=== PATIENT | male | born 1945 | race Caucasian/White ===

== ENCOUNTER 2016-06-05 17:09 | Emergency (ER) | payer OTHER ==
[~2016-06-05] VITALS: Ht 182.9 cm; Wt 101.8 kg
[~2016-06-05 17:09] MED LIST: ADVAIR HFA120 INHAL1 IH; ALBUTEROL SULF8.5 GM IH; AMBIEN10 MG PO; AMLODIPINE BESY10 MG PO; AMLODIPINE BESYL5 MG PO; ASPIR 8181 M1 PO; ASPIR-LOW81 MG PO; CALCITRIOL0.25 MCG PO; CARTIA XT180 MG PO; CARVEDILOL3.125 MG PO; CEFDINIR300 MG PO; CENTRUM SILVER1 EAC3 PO; CEPHALEXIN500 MG PO; COMBIVENT200 INHALA IH; COUMADIN10 MG PO; COUMADIN7.5 MG PO; COZAAR100 MG PO; COZAAR50 MG PO; DIOVAN40 MG PO; DOXYCYCLINE HY100 MG PO; DULERA 100 MCG/13 GM IH; DURAGESIC75 MCG TD; FUROSEMIDE40 MG PO; HUMALOG100 UNIT/1 SC; HUMALOG100 UNIT/2 SC; IMDUR30 MG PO; IMDUR60 MG PO; ISOSORBIDE MONO30 MG PO; ISOSORBIDE PO; JANUVIA25 MG PO; K-DUR20 MEQ PO; KEFLEX500 MG PO; KLOR-CON M2020 MEQ PO; LANTUS 10100 UNITS/ SC; LASIX20 MG PO; LASIX40 MG PO; LEVEMIR FL100 UNIT/1 SC; LEVEMIR100 UNIT/2 SC; LIPITOR80 MG PO; LISINOPRIL5 MG PO; LOPRESSOR50 MG PO; LORAZEPAM0.5 MG PO; LOSARTAN POTASS25 MG PO; LOSARTAN POTASS50 MG PO; LYRICA25 MG PO; METFORMIN HCL1000 MG PO; METFORMIN HCL500 MG PO; METOPROLOL PO; METOPROLOL SUCC50 MG PO; MICARDIS HCT1 TABLE2 PO; MORPHINE SULFAT15 M1 PO; MS CONTIN,ORAMO15 M1 PO; NICOTINE GUM4 MG BC; NORVASC5 MG PO; NOVOLOG 10100 UNITS/ SC; NOVOLOG PE100 UNITS/ SC; PLAVIX75 MG PO; PREDNISONE10 MG PO; PROAIR HFA8.5 GM IH; SPIRIVA RESPIMAT4 GM IH; SYMBICORT60 INHALAT IH; TELMISARTAN-HC1 EAC1 PO; TYLENOL PM EX-1 EACH PO; TYLENOL PM1 CAPLET PO; VENTOLIN HFA18 GM IH; WARFARIN SODIU7.5 MG PO; ZESTRIL5 MG PO; ZITHROMAX Z-PA250 MG PO; ZOLPIDEM TARTRA10 MG PO
[2016-06-05 18:58] LABS: HEMATOCRIT 45.4 % (38.0-50.0); MCH 27.4 PG (29.0-34.0); MCHC 30.2 G/DL (30.0-36.0); MCV 90.8 FL (86-99); MEAN PLAT.VOLUME 8.7 uM^3 (9.0-12.4); PLATELET COUNT 243 K/uL (156-360); RBC DIS.WIDTH-SD 55.8 % (39-53); WHITE BLOOD COUNT 9.9 K/uL (4.1-10.2)
[2016-06-05 19:10] LABS: CHLORIDE 93 mEq/L (99-109); SODIUM 139 mEq/L (136-147)
[2016-06-05 19:11] LABS: MAGNESIUM 2.4 mg/dL (1.3-2.7); POTASSIUM 5.4 mEq/L (3.7-5.4)
[2016-06-05 19:14] LABS: ANION GAP 14 MEQ/L (2-14); GLUCOSE 108 mg/dL (70-99)
[2016-06-05 19:16] LABS: GFR ESTIMATE (CALCULATED) 25 mL/min/
[2016-06-05 19:17] LABS: UREA NITROGEN (BUN) 77 mg/dL (9-23)
[2016-06-05 19:58] LABS: CHLORIDE 92 mEq/L (99-109); POTASSIUM 5.1 mEq/L (3.7-5.4); SODIUM 139 mEq/L (136-147)
[2016-06-05 20:00] LABS: GLUCOSE 111 mg/dL (70-99)
[2016-06-05 20:01] LABS: ANION GAP 14 MEQ/L (2-14)
[2016-06-05 20:04] LABS: GFR ESTIMATE (CALCULATED) 25 mL/min/
[2016-06-05 20:05] LABS: UREA NITROGEN (BUN) 76 mg/dL (9-23)
[2016-06-05 21:45] VITALS: BP 125/75
== END 2016-06-05 21:55 | disposition home or self-care (01) ==
LOC: EME 17:09
PROVIDERS: Emergency Medicine
DX: N18.9 Chronic kidney disease, unspecified (principal); E87.5 Hyperkalemia; E87.8 Other disorders of electrolyte and fluid balance, not elsewhere classified; E11.9 Type 2 diabetes mellitus without complications; I25.2 Old myocardial infarction; K21.9 Gastro-esophageal reflux disease without esophagitis; I25.10 Atherosclerotic heart disease of native coronary artery without angina pectoris; Z79.4 Long term (current) use of insulin; Z79.82 Long term (current) use of aspirin; F17.200 Nicotine dependence, unspecified, uncomplicated
CPT/HCPCS: 80048 91; 83735; 85027; 93005; 94640; 99281; 99285

== ENCOUNTER 2016-06-19 10:24 | Inpatient (IN) | payer OTHER ==
[~2016-06-19] VITALS: Ht 182.9 cm; Wt 95.0 kg
[2016-06-19 10:55] LABS: EOSINOPHIL (%) 0.6 % (0-5); EOSINOPHIL COUNT 0.1 K/uL (0-0.3); HEMATOCRIT 46.3 % (38.0-50.0); IMMATURE GRANULOCYTE (%) 0.4 % (0.0-0.7); IMMATURE GRANULOCYTE COUNT 0.1 K/uL; INSTRUMENT ABS NEUTROPHIL CT 14.6 K/uL; LYMPHOCYTE COUNT 1.2 K/uL (1.0-2.8); MCH 27.6 PG (29.0-34.0); MCHC 31.1 G/DL (30.0-36.0); MCV 88.7 FL (86-99); MEAN PLAT.VOLUME 8.7 uM^3 (9.0-12.4); MONOCYTE COUNT 2.4 K/uL (0-0.8); NEUTROPHIL (%) 79.2 % (45-76); NEUTROPHIL COUNT 14.6 K/uL (1.8-6.4); PLATELET COUNT 263 K/uL (156-360); RBC DIS.WIDTH-CV 16.5 % (11.8-14.6); RBC DIS.WIDTH-SD 53.1 % (39-53); RED BLOOD COUNT 5.22 M/uL (4.00-5.50)
[2016-06-19 10:56] LABS: WHITE BLOOD COUNT 18.5 K/uL (4.1-10.2)
[2016-06-19 10:57] LABS: BASE EXCESS 4.6 mEq/L (-3 to +3); CARBOXY HGB 6.1 % (0-5); METHEMOGLOBIN 1.1 % (0-1.5); pH 7.35 (7.35-7.45)
[2016-06-19 10:58] LABS: COMMENTS - BLOOD GASES A+C+; DEVICE NRBM; O2 FLOW 15 L/MIN; PCO2 58 mm Hg (35-45); PO2 113 mm Hg (80-100); SITE LR; TOTAL RESP RATE 22 resp/min
[2016-06-19 11:02] LABS: CHLORIDE 92 mEq/L (99-109); POTASSIUM 5.5 mEq/L (3.7-5.4); SODIUM 135 mEq/L (136-147)
[2016-06-19 11:04] LABS: GLUCOSE 118 mg/dL (70-99)
[2016-06-19 11:06] LABS: ANION GAP 12 MEQ/L (2-14); TOTAL BILIRUBIN 0.4 mg/dL (0.0-1.0)
[2016-06-19 11:08] LABS: ALKALINE PHOSPHATASE 86 IU/L (3-129); GFR ESTIMATE (CALCULATED) 21 mL/min/
[2016-06-19 11:10] LABS: UREA NITROGEN (BUN) 106 mg/dL (9-23)
[2016-06-19 11:15] LABS: TROP-I INTERPRETATION NEGATIVE; TROPONIN-I 0.06 ng/mL (0.0-0.30)
[2016-06-19 11:57] LABS: INFLUENZA A VIRAL ANTIGEN NEGATIVE; INFLUENZA B VIRAL ANTIGEN NEGATIVE
[2016-06-19] MEDS ORDERED: IMDUR30 MG PO (14:01)
[2016-06-19] MEDS ORDERED: CARVEDILOL3.125 MG PO (14:03)
[2016-06-19] MEDS ORDERED: AMLODIPINE BESYL5 MG PO (14:06)
[2016-06-19] MEDS ORDERED: ZOLPIDEM TARTRA10 MG PO (14:07)
[2016-06-19] MEDS ORDERED: METOLAZONE5 MG PO (14:07)
[2016-06-19] MEDS ORDERED: HYDROMORPHONE HC4 MG PO (14:07)
[2016-06-19 14:57] LABS: ADD MIUA? YES; BILIRUBIN NEGATIVE; BLOOD NEGATIVE; COLOR YELLOW ((YELLOW)); GLUCOSE (STRIP) NEGATIVE; KETONES NEGATIVE; LEUKOCYTES NEGATIVE; NITRITE NEGATIVE; PROTEIN (STRIP) 100; SPECIFIC GRAVITY 1.011 (1.000-1.030); UROBILINOGEN 0.2 MG/DL (0.2-1.0)
[2016-06-19 15:00] LABS: BACTERIA NONE SEEN /HPF; EPITHELIAL CELLS RARE /HPF; MUCUS TRACE /LPF; RED BLOOD CELLS 0-5 /HPF (0-5); UCUL ADDED? NO; WHITE BLOOD CELLS 0-5 /HPF (0-5)
[2016-06-19 17:47] VITALS: BP 160/76
[2016-06-19 20:00] VITALS: BP 145/68
[2016-06-19 20:35] LABS: ANION GAP 12 MEQ/L (2-14); CHLORIDE 87 MEQ/L (99-109); GFR ESTIMATE (CALCULATED) 24 mL/min/; SAMPLE HEMOLYSIS CHECK 1; SAMPLE ICTERIC CHECK 0; SAMPLE LIPEMIA CHECK 0; SODIUM 130 MEQ/L (136-147); UREA NITROGEN (BUN) 98 mg/dL (9-23)
[2016-06-19 20:36] LABS: POTASSIUM 4.6 MEQ/L (3.7-5.4)
[2016-06-19 20:37] LABS: GLUCOSE 534 mg/dL (70-99)
[2016-06-19 23:46] VITALS: BP 146/67
[2016-06-20 01:12] LABS: CHLORIDE 87 mEq/L (99-109)
[2016-06-20 01:13] LABS: SODIUM 131 mEq/L (136-147)
[2016-06-20 01:16] LABS: ANION GAP 12 MEQ/L (2-14); GLUCOSE 688 mg/dL (70-99)
[2016-06-20 01:18] LABS: GFR ESTIMATE (CALCULATED) 21 mL/min/
[2016-06-20 01:20] LABS: UREA NITROGEN (BUN) 102 mg/dL (9-23)
[2016-06-20 03:58] VITALS: BP 152/72
[2016-06-20 06:53] LABS: HEMATOCRIT 41.7 % (38.0-50.0); MCH 27.1 PG (29.0-34.0); MCHC 30.7 G/DL (30.0-36.0); MCV 88.2 FL (86-99); MEAN PLAT.VOLUME 9.4 uM^3 (9.0-12.4); PLATELET COUNT 216 K/uL (156-360); RBC DIS.WIDTH-CV 16.3 % (11.8-14.6); RBC DIS.WIDTH-SD 52.6 % (39-53); RED BLOOD COUNT 4.73 M/uL (4.00-5.50)
[2016-06-20 06:58] LABS: WHITE BLOOD COUNT 5.3 K/uL (4.1-10.2)
[2016-06-20 07:20] VITALS: BP 174/84
[2016-06-20 07:30] LABS: ANION GAP 12 MEQ/L (2-14); CHLORIDE 91 MEQ/L (99-109); GFR ESTIMATE (CALCULATED) 26 mL/min/; GLUCOSE 464 mg/dL (70-99); POTASSIUM 4.1 MEQ/L (3.7-5.4); SAMPLE HEMOLYSIS CHECK 0; SAMPLE ICTERIC CHECK 0; SAMPLE LIPEMIA CHECK 0; SODIUM 132 MEQ/L (136-147); UREA NITROGEN (BUN) 96 mg/dL (9-23)
[2016-06-20 08:27] LABS: INTACT PARATHYROID HORMONE 134 pg/mL (10-69)
[2016-06-20 11:28] VITALS: BP 129/62
[2016-06-20 15:55] VITALS: BP 156/98
[2016-06-20 20:00] VITALS: BP 158/70
[2016-06-20 23:55] VITALS: BP 166/77
[2016-06-21 04:09] VITALS: BP 168/81
[2016-06-21 07:10] LABS: ANION GAP 11 MEQ/L (2-14); CHLORIDE 94 MEQ/L (99-109); GFR ESTIMATE (CALCULATED) 31 mL/min/; GLUCOSE 296 mg/dL (70-99); POTASSIUM 4.1 MEQ/L (3.7-5.4); SAMPLE HEMOLYSIS CHECK 0; SAMPLE ICTERIC CHECK 0; SAMPLE LIPEMIA CHECK 0; SODIUM 136 MEQ/L (136-147); UREA NITROGEN (BUN) 84 mg/dL (9-23)
[2016-06-21 07:19] LABS: HEMATOCRIT 42.5 % (38.0-50.0); MCH 27.2 PG (29.0-34.0); MCHC 30.6 G/DL (30.0-36.0); MCV 88.9 FL (86-99); MEAN PLAT.VOLUME 9.1 uM^3 (9.0-12.4); PLATELET COUNT 232 K/uL (156-360); RBC DIS.WIDTH-CV 16.3 % (11.8-14.6); RBC DIS.WIDTH-SD 52.3 % (39-53); RED BLOOD COUNT 4.78 M/uL (4.00-5.50)
[2016-06-21 07:20] LABS: WHITE BLOOD COUNT 11.4 K/uL (4.1-10.2)
[2016-06-21 09:02] VITALS: BP 190/88
[2016-06-21 10:11] LABS: INTERNAL CONTROL VALID? YES
[2016-06-21 12:00] VITALS: BP 167/81
[2016-06-21 15:20] LABS: Estimated Average Glucose 186 mg/dL (70-123); HEMOGLOBIN A1c (GLYCOHEMOGLOB) 8.1 % HGB (Below 5.7)
[2016-06-21 16:00] VITALS: BP 180/89
[2016-06-21 20:20] VITALS: BP 178/90
[2016-06-21 23:40] VITALS: BP 162/89
[2016-06-22 00:17] LABS: POINT-OF-CARE USER ID 608261316
[2016-06-22 04:28] VITALS: BP 168/88
[2016-06-22 04:29] LABS: POINT-OF-CARE METER ID UU13113781
[2016-06-22 06:35] LABS: HEMATOCRIT 47.3 % (38.0-50.0); MCH 27.2 PG (29.0-34.0); MCHC 30.7 G/DL (30.0-36.0); MCV 88.7 FL (86-99); MEAN PLAT.VOLUME 9.1 uM^3 (9.0-12.4); PLATELET COUNT 270 K/uL (156-360); RBC DIS.WIDTH-CV 16.1 % (11.8-14.6); RBC DIS.WIDTH-SD 52.1 % (39-53); RED BLOOD COUNT 5.33 M/uL (4.00-5.50)
[2016-06-22 06:59] LABS: ANION GAP 10 MEQ/L (2-14); CHLORIDE 93 MEQ/L (99-109); GFR ESTIMATE (CALCULATED) 33 mL/min/; GLUCOSE 295 mg/dL (70-99); POTASSIUM 4.3 MEQ/L (3.7-5.4); SAMPLE HEMOLYSIS CHECK 0; SAMPLE ICTERIC CHECK 0; SAMPLE LIPEMIA CHECK 0; SODIUM 137 MEQ/L (136-147); UREA NITROGEN (BUN) 77 mg/dL (9-23)
[2016-06-22 07:27] VITALS: BP 181/84
[2016-06-22 08:07] LABS: POINT-OF-CARE METER ID UU13113781
[2016-06-22 10:06] LABS: POINT-OF-CARE METER ID UU13113781
[2016-06-22 11:36] VITALS: BP 179/84
[2016-06-22 15:54] VITALS: BP 170/81
[2016-06-22 20:00] VITALS: BP 157/73
[2016-06-22 20:40] LABS: POINT-OF-CARE METER ID UU14188625
[2016-06-22 23:47] LABS: POINT-OF-CARE METER ID UU14188625
[2016-06-23] VITALS: BP 134/64
[2016-06-23 03:44] VITALS: BP 147/77
[2016-06-23 07:22] LABS: HEMATOCRIT 49.2 % (38.0-50.0); MCH 27.5 PG (29.0-34.0); MCHC 31.1 G/DL (30.0-36.0); MCV 88.3 FL (86-99); MEAN PLAT.VOLUME 8.7 uM^3 (9.0-12.4); PLATELET COUNT 257 K/uL (156-360); RBC DIS.WIDTH-SD 51.5 % (39-53); RED BLOOD COUNT 5.57 M/uL (4.00-5.50); WHITE BLOOD COUNT 14.1 K/uL (4.1-10.2)
[2016-06-23 07:45] LABS: ANION GAP 10 MEQ/L (2-14); CHLORIDE 94 MEQ/L (99-109); GFR ESTIMATE (CALCULATED) 31 mL/min/; POTASSIUM 3.9 MEQ/L (3.7-5.4); SAMPLE HEMOLYSIS CHECK 0; SAMPLE ICTERIC CHECK 0; SAMPLE LIPEMIA CHECK 0; SODIUM 140 MEQ/L (136-147); UREA NITROGEN (BUN) 80 mg/dL (9-23)
[2016-06-23 07:46] LABS: GLUCOSE 140 mg/dL (70-99)
[2016-06-23 08:00] VITALS: BP 172/81
[2016-06-23 09:02] LABS: POINT-OF-CARE METER ID UU14188625
[2016-06-23 11:33] LABS: POINT-OF-CARE METER ID UU14174225
[2016-06-23 11:54] VITALS: BP 162/81
[2016-06-23] MEDS ORDERED: NICOTINE PATCH1 EAC1 TD (13:11)
[2016-06-23] MEDS ORDERED: AMLODIPINE BESY10 MG PO (13:11)
[2016-06-23] MEDS ORDERED: CARVEDILOL6.25 MG PO (13:11)
[2016-06-23] MEDS ORDERED: PREDNISONE20 MG PO (13:13)
[2016-06-23] MEDS ORDERED: CEFDINIR300 MG PO (13:14)
[2016-06-24 14:55] LABS: POINT-OF-CARE METER ID UU14174216
[2016-06-24 14:55] LABS: POINT-OF-CARE METER ID UU14174216
[2016-06-24 14:55] LABS: POINT-OF-CARE METER ID UU14174216
== END 2016-06-23 14:32 | disposition home or self-care (01) | DRG 189 ==
LOC: EME 10:24 → 5SOUTH 13:41 → 4EAST 13:41 → EDOF 13:41 → 4EAST 17:10 → 5SOUTH 06-22 15:30
PROVIDERS: Emergency Medicine; Hospitalist; Internal Medicine; Nurse Practitioner Family
DX: J96.21 Acute and chronic respiratory failure with hypoxia (principal); E87.1 Hypo-osmolality and hyponatremia; J44.1 Chronic obstructive pulmonary disease with (acute) exacerbation; J98.11 Atelectasis; N17.9 Acute kidney failure, unspecified; I50.32 Chronic diastolic (congestive) heart failure; J96.22 Acute and chronic respiratory failure with hypercapnia; E87.2 Acidosis; N18.4 Chronic kidney disease, stage 4 (severe); N25.81 Secondary hyperparathyroidism of renal origin; E87.5 Hyperkalemia; D72.829 Elevated white blood cell count, unspecified; T50.2X5A Adverse effect of carbonic-anhydrase inhibitors, benzothiadiazides and other diuretics, initial encounter; I25.2 Old myocardial infarction; M19.90 Unspecified osteoarthritis, unspecified site; I73.9 Peripheral vascular disease, unspecified; R41.0 Disorientation, unspecified; E83.51 Hypocalcemia; I25.10 Atherosclerotic heart disease of native coronary artery without angina pectoris; I12.9 Hypertensive chronic kidney disease with stage 1 through stage 4 chronic kidney disease, or unspecified chronic kidney disease; Z79.4 Long term (current) use of insulin; Z91.013 Allergy to seafood; Z88.6 Allergy status to analgesic agent; Z99.81 Dependence on supplemental oxygen; F17.200 Nicotine dependence, unspecified, uncomplicated; Z79.82 Long term (current) use of aspirin; Z95.1 Presence of aortocoronary bypass graft; F17.210 Nicotine dependence, cigarettes, uncomplicated; R94.31 Abnormal electrocardiogram [ECG] [EKG]; I35.0 Nonrheumatic aortic (valve) stenosis; E11.22 Type 2 diabetes mellitus with diabetic chronic kidney disease
CPT/HCPCS: 36600; 71010; 80048; 80048 91; 80053; 81003; 82010; 82803; 82948; 83036; 83880; 83970; 84100; 84484; 85025; 85027; 87070; 87077; 87186; 87205; 87449; 87502; 93005; 94640; 94640 76; 94660; 94799; 99202; 99281; 99285; J0456; J0696; J1644; J1815; J2920; J2930; J7030; J7050; J7512

== ENCOUNTER 2016-10-01 11:25 | Inpatient (IN) | payer OTHER ==
[2016-10-01] VITALS (9 sets, daily range): BP systolic 83–141; BP diastolic 55–74
[~2016-10-01] VITALS: Ht 182.9 cm; Wt 86.1 kg
[~2016-10-01 11:25] MED LIST changes: +CARVEDILOL6.25 MG PO; +HYDROMORPHONE HC4 MG PO; +METOLAZONE5 MG PO; +NICOTINE PATCH1 EAC1 TD; +PREDNISONE20 MG PO
[2016-10-01 12:19] LABS: EOSINOPHIL (%) 2.2 % (0-5); EOSINOPHIL COUNT 0.2 K/uL (0-0.3); HEMATOCRIT 44.5 % (38.0-50.0); IMMATURE GRANULOCYTE (%) 0.2 % (0.0-0.7); INSTRUMENT ABS NEUTROPHIL CT 6.9 K/uL; MCHC 29.9 G/DL (30.0-36.0); MCV 93.7 FL (86-99); MEAN PLAT.VOLUME 8.8 uM^3 (9.0-12.4); MONOCYTE (%) 14.9 % (3-12); MONOCYTE COUNT 1.4 K/uL (0-0.8); NEUTROPHIL (%) 72.3 % (45-76); NEUTROPHIL COUNT 6.9 K/uL (1.8-6.4); PLATELET COUNT 255 K/uL (156-360); RBC DIS.WIDTH-CV 17.3 % (11.8-14.6); RBC DIS.WIDTH-SD 59.7 % (39-53); RED BLOOD COUNT 4.75 M/uL (4.00-5.50); WHITE BLOOD COUNT 9.6 K/uL (4.1-10.2)
[2016-10-01 12:30] LABS: CHLORIDE 97 mEq/L (99-109); POTASSIUM 5.4 mEq/L (3.7-5.4)
[2016-10-01 12:31] LABS: SODIUM 139 mEq/L (136-147)
[2016-10-01 12:34] LABS: ANION GAP 11 MEQ/L (2-14)
[2016-10-01 12:35] LABS: TOTAL BILIRUBIN 0.3 mg/dL (0.0-1.0)
[2016-10-01 12:36] LABS: ALKALINE PHOSPHATASE 88 IU/L (3-129); GFR ESTIMATE (CALCULATED) 21 mL/min/
[2016-10-01 12:45] LABS: TROP-I INTERPRETATION NEGATIVE; TROPONIN-I 0.01 ng/mL (0.0-0.30)
[2016-10-01 12:49] LABS: GLUCOSE 164 mg/dL (70-99); UREA NITROGEN (BUN) 104 mg/dL (9-23)
[2016-10-01 13:40] LABS: BASE EXCESS 2.7 mEq/L (-3 to +3); BICARBONATE 32.7 mEq/L (22-26); CARBOXY HGB 7.9 % (0-5); COMMENTS - BLOOD GASES A+C+; DEVICE NC; METHEMOGLOBIN 1.3 % (0-1.5); O2 FLOW 5 L/MIN; PCO2 78 mm Hg (35-45); PO2 49 mm Hg (80-100); SITE LR; TOTAL RESP RATE 21 resp/min; pH 7.23 (7.35-7.45)
[2016-10-01 14:47] LABS: ADD MIUA? YES; BILIRUBIN NEGATIVE; BLOOD NEGATIVE; COLOR YELLOW ((YELLOW)); GLUCOSE (STRIP) NEGATIVE; KETONES NEGATIVE; LEUKOCYTES NEGATIVE; NITRITE NEGATIVE; PROTEIN (STRIP) 100; SPECIFIC GRAVITY 1.013 (1.000-1.030); UROBILINOGEN 0.2 MG/DL (0.2-1.0)
[2016-10-01 14:55] LABS: BACTERIA NONE SEEN /HPF; EPITHELIAL CELLS RARE /HPF; MUCUS TRACE /LPF; RED BLOOD CELLS 0-5 /HPF (0-5); UCUL ADDED? NO; WHITE BLOOD CELLS 0-5 /HPF (0-5)
[2016-10-01] MEDS ORDERED: LORAZEPAM0.5 MG PO (15:15)
[2016-10-01] MEDS ORDERED: CALCITRIOL0.25 MCG PO (15:17)
[2016-10-01 19:48] LABS: METH RESISTANT S AUREUS PCR NEGATIVE (NEGATIVE)
[2016-10-01 19:52] LABS: PROBE CHECK PASS; SPECIMEN PROCESSING CONTROL PASS
[2016-10-01 20:08] LABS: DIRECT BILIRUBIN 0.1 mg/dL (0.0-0.3); MAGNESIUM 2.8 mg/dl (1.3-2.7)
[2016-10-01 20:14] LABS: INTACT PARATHYROID HORMONE 170 pg/mL (10-69)
[2016-10-02] VITALS (25 sets, daily range): BP systolic 107–152; BP diastolic 47–64
[2016-10-02 01:31] LABS: CREATINE KINASE 18 IU/L (1-294); TOTAL CK 18 IU/L (1-294)
[2016-10-02 01:37] LABS: TROP-I INTERPRETATION NEGATIVE; TROPONIN-I 0.05 ng/mL (0.0-0.30)
[2016-10-02 04:32] LABS: BASE EXCESS 5.5 mEq/L (-3 to +3); BICARBONATE 31.6 mEq/L (22-26); METHEMOGLOBIN 1.7 % (0-1.5)
[2016-10-02 04:33] LABS: COMMENTS - BLOOD GASES A+C+; DEVICE VENT; FI02 60 %; MECHANICAL RATE 16 resp/min; MODE AC; PCO2 51 mm Hg (35-45); PO2 71 mm Hg (80-100); SITE RR; TOTAL RESP RATE 24 resp/min
[2016-10-02 04:34] LABS: PEEP 10 CM/H20; TIDAL VOLUME 500 ML
[2016-10-02 05:40] LABS: HEMATOCRIT 42.9 % (38.0-50.0); MCH 28.7 PG (29.0-34.0); MCHC 31.7 G/DL (30.0-36.0); MCV 90.5 FL (86-99); MEAN PLAT.VOLUME 9.4 uM^3 (9.0-12.4); PLATELET COUNT 237 K/uL (156-360); RBC DIS.WIDTH-CV 17.2 % (11.8-14.6); RBC DIS.WIDTH-SD 56.9 % (39-53); RED BLOOD COUNT 4.74 M/uL (4.00-5.50); WHITE BLOOD COUNT 8.3 K/uL (4.1-10.2)
[2016-10-02 06:07] LABS: ALKALINE PHOSPHATASE 65 IU/L (3-129); ANION GAP 12 MEQ/L (2-14); CHLORIDE 99 MEQ/L (99-109); GFR ESTIMATE (CALCULATED) 25 mL/min/; GLUCOSE 134 mg/dL (70-99); POTASSIUM 5.4 MEQ/L (3.7-5.4); SAMPLE HEMOLYSIS CHECK 0; SAMPLE ICTERIC CHECK 0; SAMPLE LIPEMIA CHECK 0; SODIUM 140 MEQ/L (136-147); TOTAL BILIRUBIN 0.6 MG/DL (0.0-1.0); UREA NITROGEN (BUN) 87 mg/dL (9-23)
[2016-10-02 06:16] LABS: TROP-I INTERPRETATION NEGATIVE; TROPONIN-I 0.05 ng/mL (0.0-0.30)
[2016-10-02 06:17] LABS: CK-MB 0.9 ng/mL (0.0-4.9)
[2016-10-02 06:38] LABS: CREATINE KINASE 14 IU/L (1-294); TOTAL CK 14 IU/L (1-294)
[2016-10-02 08:04] LABS: INTERNAL CONTROL VALID? YES
[2016-10-02 12:18] LABS: CREATINE KINASE 15 IU/L (1-294); TOTAL CK 15 IU/L (1-294)
[2016-10-02 12:21] LABS: CK-MB 0.8 ng/mL (0.0-4.9); TROP-I INTERPRETATION NEGATIVE; TROPONIN-I 0.03 ng/mL (0.0-0.30)
[2016-10-02 12:27] LABS: POINT-OF-CARE METER ID UU14162636
[2016-10-02 18:00] LABS: POINT-OF-CARE METER ID UU14174217
[2016-10-02 18:29] LABS: CREATINE KINASE 16 IU/L (1-294); TOTAL CK 16 IU/L (1-294)
[2016-10-02 18:34] LABS: TROP-I INTERPRETATION NEGATIVE; TROPONIN-I 0.05 ng/mL (0.0-0.30)
[2016-10-02 19:27] LABS: CK-MB 0.7 ng/mL (0.0-4.9)
[2016-10-03] VITALS (24 sets, daily range): BP systolic 129–182; BP diastolic 60–95
[2016-10-03 01:12] LABS: POINT-OF-CARE METER ID UU13113748
[2016-10-03 05:58] LABS: POINT-OF-CARE METER ID UU14208751
[2016-10-03 06:20] LABS: ANION GAP 16 MEQ/L (2-14); CHLORIDE 93 MEQ/L (99-109); GFR ESTIMATE (CALCULATED) 25 mL/min/; SAMPLE HEMOLYSIS CHECK 0; SAMPLE ICTERIC CHECK 0; SAMPLE LIPEMIA CHECK 0; SODIUM 140 MEQ/L (136-147); UREA NITROGEN (BUN) 97 mg/dL (9-23)
[2016-10-03 06:21] LABS: GLUCOSE 252 mg/dL (70-99)
[2016-10-03 06:22] LABS: POTASSIUM 3.6 MEQ/L (3.7-5.4)
[2016-10-03 11:24] LABS: POINT-OF-CARE METER ID UU13113748
[2016-10-03 16:17] LABS: BASE EXCESS 10.8 mEq/L (-3 to +3); BICARBONATE 35.8 mEq/L (22-26); CARBOXY HGB 2.4 % (0-5); METHEMOGLOBIN 1.5 % (0-1.5); PCO2 47 mm Hg (35-45); PO2 81 mm Hg (80-100); SITE RR; pH 7.49 (7.35-7.45)
[2016-10-03 16:18] LABS: COMMENTS - BLOOD GASES A+C+; CONTINUOUS POS AIRWAY PRESSURE 7 cm H2O; DEVICE VENT; FI02 50 %; MODE SPON; TOTAL RESP RATE 19 resp/min
[2016-10-03 17:31] LABS: POINT-OF-CARE METER ID UU14208751
[2016-10-04] VITALS (12 sets, daily range): BP systolic 134–180; BP diastolic 54–86
[2016-10-04 00:21] LABS: POINT-OF-CARE METER ID UU13113748
[2016-10-04 05:49] LABS: HEMATOCRIT 46.8 % (38.0-50.0); MCH 28.6 PG (29.0-34.0); MCHC 32.5 G/DL (30.0-36.0); MEAN PLAT.VOLUME 9.2 uM^3 (9.0-12.4); PLATELET COUNT 264 K/uL (156-360); RBC DIS.WIDTH-CV 16.9 % (11.8-14.6); RBC DIS.WIDTH-SD 53.3 % (39-53); RED BLOOD COUNT 5.32 M/uL (4.00-5.50)
[2016-10-04 06:41] LABS: ANION GAP 11 MEQ/L (2-14); CHLORIDE 91 MEQ/L (99-109); GFR ESTIMATE (CALCULATED) 27 mL/min/; GLUCOSE 330 mg/dL (70-99); MAGNESIUM 2.3 mg/dl (1.3-2.7); POTASSIUM 4.2 MEQ/L (3.7-5.4); SAMPLE HEMOLYSIS CHECK 0; SAMPLE ICTERIC CHECK 0; SAMPLE LIPEMIA CHECK 0; SODIUM 140 MEQ/L (136-147); UREA NITROGEN (BUN) 89 mg/dL (9-23)
[2016-10-04 11:25] LABS: POINT-OF-CARE USER ID NUTSLF44
[2016-10-04 17:10] LABS: POINT-OF-CARE USER ID NUTSLF44
[2016-10-05 03:00] VITALS: BP 120/59
[2016-10-05 06:02] LABS: HEMATOCRIT 49.5 % (38.0-50.0); MCH 28.4 PG (29.0-34.0); MCHC 32.3 G/DL (30.0-36.0); MCV 87.9 FL (86-99); MEAN PLAT.VOLUME 9.5 uM^3 (9.0-12.4); PLATELET COUNT 268 K/uL (156-360); RBC DIS.WIDTH-CV 16.6 % (11.8-14.6); RBC DIS.WIDTH-SD 52.7 % (39-53); RED BLOOD COUNT 5.63 M/uL (4.00-5.50)
[2016-10-05 06:26] LABS: ANION GAP 14 MEQ/L (2-14); CHLORIDE 91 MEQ/L (99-109); GFR ESTIMATE (CALCULATED) 31 mL/min/; GLUCOSE 210 mg/dL (70-99); SAMPLE HEMOLYSIS CHECK 0; SAMPLE ICTERIC CHECK 0; SAMPLE LIPEMIA CHECK 0; SODIUM 139 MEQ/L (136-147); UREA NITROGEN (BUN) 98 mg/dL (9-23); URIC ACID 11.5 mg/dL (3.1-9.2)
[2016-10-05 07:24] VITALS: BP 190/88
[2016-10-05 08:43] LABS: POINT-OF-CARE METER ID UU13113781; POINT-OF-CARE USER ID NUTSLF44
[2016-10-05 11:22] VITALS: BP 162/76
[2016-10-05 13:09] LABS: GLUCOSE 409 mg/dL (70-99)
[2016-10-05 16:05] VITALS: BP 156/73
[2016-10-05 17:44] LABS: POINT-OF-CARE METER ID UU13113698; POINT-OF-CARE USER ID NUTSLF44
[2016-10-05 19:25] VITALS: BP 161/82
[2016-10-05 23:36] LABS: POINT-OF-CARE USER ID NUTSLF44
[2016-10-05 23:36] LABS: POINT-OF-CARE METER ID UU13113698
[2016-10-06] VITALS: BP 124/72
[2016-10-06 04:00] VITALS: BP 152/70
[2016-10-06 05:45] LABS: HEMATOCRIT 51.9 % (38.0-50.0); MCH 27.4 PG (29.0-34.0); MCHC 31.2 G/DL (30.0-36.0); MCV 87.7 FL (86-99); MEAN PLAT.VOLUME 9.3 uM^3 (9.0-12.4); PLATELET COUNT 267 K/uL (156-360); RBC DIS.WIDTH-SD 51.4 % (39-53); RED BLOOD COUNT 5.92 M/uL (4.00-5.50); WHITE BLOOD COUNT 19.5 K/uL (4.1-10.2)
[2016-10-06 06:16] LABS: ANION GAP 17 MEQ/L (2-14); CHLORIDE 92 MEQ/L (99-109); GFR ESTIMATE (CALCULATED) 30 mL/min/; GLUCOSE 243 mg/dL (70-99); POTASSIUM 4.1 MEQ/L (3.7-5.4); SAMPLE HEMOLYSIS CHECK 0; SAMPLE ICTERIC CHECK 0; SAMPLE LIPEMIA CHECK 0; SODIUM 140 MEQ/L (136-147); UREA NITROGEN (BUN) 95 mg/dL (9-23)
[2016-10-06 06:18] LABS: ANION GAP 11 MEQ/L (2-14); CHLORIDE 92 MEQ/L (99-109); GFR ESTIMATE (CALCULATED) 28 mL/min/; GLUCOSE 238 mg/dL (70-99); POTASSIUM 3.9 MEQ/L (3.7-5.4); SAMPLE HEMOLYSIS CHECK 0; SAMPLE ICTERIC CHECK 0; SAMPLE LIPEMIA CHECK 0; SODIUM 138 MEQ/L (136-147); UREA NITROGEN (BUN) 91 mg/dL (9-23)
[2016-10-06 08:45] VITALS: BP 147/59
[2016-10-06 08:47] LABS: POINT-OF-CARE USER ID ENVKC36
[2016-10-06 11:45] VITALS: BP 134/76
[2016-10-06 12:15] LABS: POINT-OF-CARE USER ID ENVKC36
[2016-10-06 16:15] VITALS: BP 142/84
[2016-10-06 19:30] VITALS: BP 157/74
[2016-10-07 00:10] VITALS: BP 119/68
[2016-10-07 04:00] VITALS: BP 104/53
[2016-10-07 05:18] LABS: HEMATOCRIT 50.2 % (38.0-50.0); MCH 27.2 PG (29.0-34.0); MCHC 31.1 G/DL (30.0-36.0); MCV 87.5 FL (86-99); MEAN PLAT.VOLUME 9.3 uM^3 (9.0-12.4); PLATELET COUNT 240 K/uL (156-360); RBC DIS.WIDTH-CV 15.9 % (11.8-14.6); RBC DIS.WIDTH-SD 51.1 % (39-53); RED BLOOD COUNT 5.74 M/uL (4.00-5.50); WHITE BLOOD COUNT 14.5 K/uL (4.1-10.2)
[2016-10-07 06:15] LABS: ANION GAP 11 MEQ/L (2-14); CHLORIDE 91 MEQ/L (99-109); GFR ESTIMATE (CALCULATED) 31 mL/min/; POTASSIUM 4.2 MEQ/L (3.7-5.4); SAMPLE HEMOLYSIS CHECK 0; SAMPLE ICTERIC CHECK 0; SAMPLE LIPEMIA CHECK 0; SODIUM 135 MEQ/L (136-147); UREA NITROGEN (BUN) 98 mg/dL (9-23)
[2016-10-07 06:16] LABS: GLUCOSE 379 mg/dL (70-99)
[2016-10-07 06:17] LABS: ANION GAP 11 MEQ/L (2-14); CHLORIDE 91 MEQ/L (99-109); GFR ESTIMATE (CALCULATED) 31 mL/min/; GLUCOSE 379 mg/dL (70-99); POTASSIUM 4.2 MEQ/L (3.7-5.4); SAMPLE HEMOLYSIS CHECK 0; SAMPLE ICTERIC CHECK 0; SAMPLE LIPEMIA CHECK 0; SODIUM 135 MEQ/L (136-147); UREA NITROGEN (BUN) 98 mg/dL (9-23)
[2016-10-07 09:00] VITALS: BP 147/70
[2016-10-07] MEDS ORDERED: PREDNISONE20 MG PO ×2 (10:45→11:25)
[2016-10-07] MEDS ORDERED: NICOTINE PATCH1 EAC1 TD (10:45)
[2016-10-07] MEDS ORDERED: APRESOLINE50 MG PO (10:45)
[2016-10-07] MEDS ORDERED: ADVAIR HFA120 INHALA IH (10:45)
[2016-10-07 12:00] VITALS: BP 162/81
== END 2016-10-07 15:05 | disposition home or self-care (01) | DRG 682 ==
LOC: EME 11:25 → EDOF 16:10 → 4WEST 16:10 → 4EAST 16:10 → 4WEST 17:02 → 4EAST 10-04 07:41 → ENPENDDIS 10-07 → 4EAST 10-07 09:56 → ENRESERV 10-07 09:58 → 4EAST 10-07 15:05
PROVIDERS: Emergency Medicine; Family Medicine; Internal Medicine; Internal Medicine Nephrology; Obstetrics & Gynecology
PROC: 5A1935Z Respiratory Ventilation, Less than 24 Consecutive Hours (ICD-10-PCS; principal; 2016-10-01)
PROC: 0BH17EZ Insertion of Endotracheal Airway into Trachea, Via Natural or Artificial Opening (ICD-10-PCS; principal; 2016-10-01)
DX: N17.9 Acute kidney failure, unspecified (principal); J96.22 Acute and chronic respiratory failure with hypercapnia; J44.1 Chronic obstructive pulmonary disease with (acute) exacerbation; J96.21 Acute and chronic respiratory failure with hypoxia; G93.40 Encephalopathy, unspecified; I50.33 Acute on chronic diastolic (congestive) heart failure; J44.0 Chronic obstructive pulmonary disease with (acute) lower respiratory infection; E11.22 Type 2 diabetes mellitus with diabetic chronic kidney disease; E66.01 Morbid (severe) obesity due to excess calories; I27.2 Other secondary pulmonary hypertension; E11.65 Type 2 diabetes mellitus with hyperglycemia; D75.1 Secondary polycythemia; E87.2 Acidosis; E11.21 Type 2 diabetes mellitus with diabetic nephropathy; E87.5 Hyperkalemia; E87.6 Hypokalemia; G47.33 Obstructive sleep apnea (adult) (pediatric); R91.1 Solitary pulmonary nodule; I13.2 Hypertensive heart and chronic kidney disease with heart failure and with stage 5 chronic kidney disease, or end stage renal disease; I25.10 Atherosclerotic heart disease of native coronary artery without angina pectoris; I87.2 Venous insufficiency (chronic) (peripheral); D64.9 Anemia, unspecified; E78.5 Hyperlipidemia, unspecified; F17.200 Nicotine dependence, unspecified, uncomplicated; I73.9 Peripheral vascular disease, unspecified; J18.9 Pneumonia, unspecified organism; J98.11 Atelectasis; I89.0 Lymphedema, not elsewhere classified; K21.9 Gastro-esophageal reflux disease without esophagitis; I35.0 Nonrheumatic aortic (valve) stenosis; Z82.49 Family history of ischemic heart disease and other diseases of the circulatory system; Z68.25 Body mass index [BMI] 25.0-25.9, adult; Z79.4 Long term (current) use of insulin; Z87.442 Personal history of urinary calculi; I25.2 Old myocardial infarction; Z99.81 Dependence on supplemental oxygen; Z97.8 Presence of other specified devices
CPT/HCPCS: 36415; 36600; 71010; 71020; 71250; 80048; 80048 91; 80053; 80069; 81003; 82248; 82272; 82550; 82550 91; 82553; 82803; 82948; 83735; 83880; 83970; 84100; 84145 90; 84484; 84550; 84999; 85025; 85027; 87070; 87205; 87449; 87641; 93005; 94002; 94003; 94640; 94640 76; 94660; 94799; 99202; 99281; 99285; J0456; J0696; J1205; J1644; J1815; J1940; J2310; J2405; J2704; J2920; J2930; J3010; J7050; J7512; P9047; S0028

== ENCOUNTER 2016-11-27 08:05 | Inpatient (IN) | payer OTHER ==
[~2016-11-27] VITALS: Ht 182.9 cm; Wt 95.0 kg
[~2016-11-27 08:05] MED LIST changes: +ADVAIR HFA120 INHALA IH; +APRESOLINE50 MG PO
[2016-11-27 08:50] LABS: HEMATOCRIT 45.1 % (38.0-50.0); MCH 28.6 PG (29.0-34.0); MCHC 31.5 G/DL (30.0-36.0); MCV 90.9 FL (86-99); PLATELET COUNT 252 K/uL (156-360); RBC DIS.WIDTH-CV 17.9 % (11.8-14.6); RBC DIS.WIDTH-SD 58.5 % (39-53); RED BLOOD COUNT 4.96 M/uL (4.00-5.50); WHITE BLOOD COUNT 17.4 K/uL (4.1-10.2)
[2016-11-27 08:59] LABS: CHLORIDE 85 mEq/L (99-109); POTASSIUM 5.5 mEq/L (3.7-5.4); SODIUM 134 mEq/L (136-147)
[2016-11-27 09:01] LABS: GLUCOSE 271 mg/dL (70-99)
[2016-11-27 09:03] LABS: ANION GAP 15 MEQ/L (2-14)
[2016-11-27 09:05] LABS: GFR ESTIMATE (CALCULATED) 30 mL/min/
[2016-11-27 09:06] LABS: UREA NITROGEN (BUN) 76 mg/dL (9-23)
[2016-11-27 09:11] LABS: TROP-I INTERPRETATION NEGATIVE; TROPONIN-I 0.04 ng/mL (0.0-0.30)
[2016-11-27 09:27] LABS: ADD MIUA? YES; BILIRUBIN NEGATIVE; BLOOD NEGATIVE; GLUCOSE (STRIP) 150; KETONES NEGATIVE; LEUKOCYTES NEGATIVE; NITRITE NEGATIVE; PROTEIN (STRIP) 100; UROBILINOGEN 0.2 MG/DL (0.2-1.0)
[2016-11-27 09:31] LABS: COLOR LT YELLOW ((YELLOW))
[2016-11-27 09:32] LABS: BACTERIA RARE /HPF; EPITHELIAL CELLS NONE SEEN /HPF; MUCUS TRACE /LPF; RED BLOOD CELLS 0-5 /HPF (0-5); UCUL ADDED? NO; WHITE BLOOD CELLS 0-5 /HPF (0-5)
[2016-11-27 11:24] LABS: BASE EXCESS 11.2 mEq/L (-3 to +3); BICARBONATE 40.5 mEq/L (22-26); METHEMOGLOBIN 1.1 % (0-1.5); PO2 73 mm Hg (80-100)
[2016-11-27 11:25] LABS: COMMENTS - BLOOD GASES A+C+; DEVICE HHFNC; O2 FLOW 30 L/MIN; PCO2 75 mm Hg (35-45); SITE RR; TOTAL RESP RATE 15 resp/min; pH 7.34 (7.35-7.45)
[2016-11-27 12:12] LABS: BASE EXCESS 10.8 mEq/L (-3 to +3); BICARBONATE 39.5 mEq/L (22-26); COMMENTS - BLOOD GASES A+C+; DEVICE HHFNC; METHEMOGLOBIN 1.2 % (0-1.5); O2 FLOW 30 L/MIN; PCO2 70 mm Hg (35-45); PO2 74 mm Hg (80-100); SITE RR; TOTAL RESP RATE 20 resp/min; pH 7.36 (7.35-7.45)
[2016-11-27] MEDS ORDERED: PREDNISONE10 MG PO (12:24)
[2016-11-27] MEDS ORDERED: DILAUDID4 MG PO (12:26)
[2016-11-27] MEDS ORDERED: DUONEB 2.5-0.5 M3 ML AEROSOL (12:27)
[2016-11-27] MEDS ORDERED: PROAIR HFA8.5 GM IH (12:27)
[2016-11-27] MEDS ORDERED: CARVEDILOL PO (12:32)
[2016-11-27] MEDS ORDERED: AMLODIPINE PO (12:33)
[2016-11-27 14:50] VITALS: BP 138/65
[2016-11-27 15:29] LABS: TROP-I INTERPRETATION NEGATIVE; TROPONIN-I 0.03 ng/mL (0.0-0.30)
[2016-11-27 18:10] LABS: GLUCOSE 545 mg/dL (70-99)
[2016-11-27 20:00] VITALS: BP 126/67
[2016-11-27 21:20] LABS: TROP-I INTERPRETATION NEGATIVE; TROPONIN-I 0.03 ng/mL (0.0-0.30)
[2016-11-27 21:43] LABS: GLUCOSE 504 mg/dL (70-99)
[2016-11-27 23:53] VITALS: BP 134/65
[2016-11-28 01:02] LABS: CHLORIDE 87 mEq/L (99-109)
[2016-11-28 01:03] LABS: SODIUM 131 mEq/L (136-147)
[2016-11-28 01:06] LABS: ANION GAP 14 MEQ/L (2-14)
[2016-11-28 01:08] LABS: GFR ESTIMATE (CALCULATED) 30 mL/min/
[2016-11-28 01:09] LABS: UREA NITROGEN (BUN) 86 mg/dL (9-23)
[2016-11-28 01:11] LABS: GLUCOSE 407 mg/dL (70-99); POTASSIUM 4.1 mEq/L (3.7-5.4)
[2016-11-28 02:35] LABS: POINT-OF-CARE METER ID UU13113781
[2016-11-28 03:39] VITALS: BP 155/85
[2016-11-28 06:18] LABS: ANION GAP 9 MEQ/L (2-14); CHLORIDE 90 MEQ/L (99-109); GFR ESTIMATE (CALCULATED) 31 mL/min/; GLUCOSE 284 mg/dL (70-99); POTASSIUM 4.1 MEQ/L (3.7-5.4); SAMPLE HEMOLYSIS CHECK 0; SAMPLE ICTERIC CHECK 0; SAMPLE LIPEMIA CHECK 0; SODIUM 134 MEQ/L (136-147); UREA NITROGEN (BUN) 82 mg/dL (9-23)
[2016-11-28 07:25] VITALS: BP 137/68
[2016-11-28 08:09] LABS: POINT-OF-CARE METER ID UU14174216
[2016-11-28 11:30] VITALS: BP 153/68
[2016-11-28 13:09] LABS: POINT-OF-CARE METER ID UU14174216
[2016-11-28 13:09] LABS: POINT-OF-CARE METER ID UU13113698
[2016-11-28 13:12] LABS: POINT-OF-CARE METER ID UU13113698
[2016-11-28 16:00] VITALS: BP 129/60
[2016-11-28 19:11] VITALS: BP 139/74
[2016-11-28 21:25] LABS: POINT-OF-CARE METER ID UU13113781
[2016-11-28 23:59] VITALS: BP 146/70
[2016-11-29 04:03] VITALS: BP 142/74
[2016-11-29 06:29] LABS: ANION GAP 5 MEQ/L (2-14); CHLORIDE 91 MEQ/L (99-109); GFR ESTIMATE (CALCULATED) 35 mL/min/; GLUCOSE 215 mg/dL (70-99); SAMPLE HEMOLYSIS CHECK 0; SAMPLE ICTERIC CHECK 0; SAMPLE LIPEMIA CHECK 0; SODIUM 134 MEQ/L (136-147); UREA NITROGEN (BUN) 79 mg/dL (9-23)
[2016-11-29 08:10] VITALS: BP 192/86
[2016-11-29 11:41] LABS: POINT-OF-CARE METER ID UU13113698
[2016-11-29 11:55] VITALS: BP 147/70
[2016-11-29 16:09] VITALS: BP 164/75
[2016-11-29 16:22] LABS: POINT-OF-CARE METER ID UU13113698
[2016-11-29 19:20] VITALS: BP 165/75
[2016-11-29 20:56] LABS: POINT-OF-CARE METER ID UU14174216
[2016-11-29 23:30] VITALS: BP 125/69
[2016-11-30 04:08] VITALS: BP 189/79
[2016-11-30 07:18] VITALS: BP 190/97
[2016-11-30 07:55] LABS: POINT-OF-CARE METER ID UU14174216
[2016-11-30] MEDS ORDERED: NICOTINE PATCH1 EAC1 TD (08:47)
[2016-11-30] MEDS ORDERED: AZITHROMYCIN500 M1 PO (08:47)
[2016-11-30] MEDS ORDERED: AMLODIPINE BESY10 MG PO ×2 (08:50→14:20)
[2016-11-30] MEDS ORDERED: COREG3.125 M1 PO (08:50)
[2016-11-30] MEDS ORDERED: PREDNISONE10 MG PO (08:51)
[2016-11-30 09:02] VITALS: BP 143/75
== END 2016-11-30 11:06 | disposition home or self-care (01) | DRG 190 ==
LOC: EME 08:05 → 4EAST 10:31 → EDOF 10:31 → CANRESERV 10:47 → ENRESERV 10:47 → CANRESERV 11:04 → ENRESERV 11:32 → CANRESERV 11:32 → EDOF 12:43 → ENRESERV 12:48 → CANRESERV 12:48 → ENRESERV 12:49 → 4EAST 14:16 → ENPENDDIS 11-30 → 4EAST 11-30 11:06
PROVIDERS: Emergency Medicine; Family Medicine; Hospitalist; Internal Medicine
PROC: 5A09357 Assistance with Respiratory Ventilation, Less than 24 Consecutive Hours, Continuous Positive Airway Pressure (ICD-10-PCS; principal; 2016-11-28)
DX: J44.1 Chronic obstructive pulmonary disease with (acute) exacerbation (principal); J96.21 Acute and chronic respiratory failure with hypoxia; J96.22 Acute and chronic respiratory failure with hypercapnia; E66.2 Morbid (severe) obesity with alveolar hypoventilation; I13.0 Hypertensive heart and chronic kidney disease with heart failure and stage 1 through stage 4 chronic kidney disease, or unspecified chronic kidney disease; E87.1 Hypo-osmolality and hyponatremia; I50.32 Chronic diastolic (congestive) heart failure; N18.4 Chronic kidney disease, stage 4 (severe); J20.9 Acute bronchitis, unspecified; F17.210 Nicotine dependence, cigarettes, uncomplicated; E11.65 Type 2 diabetes mellitus with hyperglycemia; E11.22 Type 2 diabetes mellitus with diabetic chronic kidney disease; E87.5 Hyperkalemia; I25.10 Atherosclerotic heart disease of native coronary artery without angina pectoris; I27.2 Other secondary pulmonary hypertension; I35.0 Nonrheumatic aortic (valve) stenosis; I73.9 Peripheral vascular disease, unspecified; I87.2 Venous insufficiency (chronic) (peripheral); K21.9 Gastro-esophageal reflux disease without esophagitis; T38.0X5A Adverse effect of glucocorticoids and synthetic analogues, initial encounter; Z68.28 Body mass index [BMI] 28.0-28.9, adult; Z99.81 Dependence on supplemental oxygen; Z91.19 Patient's noncompliance with other medical treatment and regimen; Z90.49 Acquired absence of other specified parts of digestive tract; Z87.442 Personal history of urinary calculi; I25.2 Old myocardial infarction; Z91.013 Allergy to seafood; Z79.4 Long term (current) use of insulin; Z88.1 Allergy status to other antibiotic agents; Z88.5 Allergy status to narcotic agent; Z82.49 Family history of ischemic heart disease and other diseases of the circulatory system
CPT/HCPCS: 36600; 71010; 71250; 80048; 80048 91; 81003; 82010; 82803; 82948; 83605; 84484; 84999; 85027; 87040; 87070; 87205; 93005; 94640; 94640 76; 94660; 94668; 94760; 94799; 99202; 99281; 99285; J0456; J0696; J1650; J1815; J1956; J2930; J7030; J7050; J7512

== ENCOUNTER 2016-12-26 08:20 | Inpatient (IN) | payer OTHER ==
[~2016-12-26] VITALS: Ht 182.9 cm; Wt 96.5 kg
[~2016-12-26 08:20] MED LIST changes: +AMLODIPINE PO; +AZITHROMYCIN500 M1 PO; +CARVEDILOL PO; +COREG3.125 M1 PO; +DILAUDID4 MG PO; +DUONEB 2.5-0.5 M3 ML AEROSOL
[2016-12-26 09:01] LABS: EOSINOPHIL (%) 2.3 % (0-5); EOSINOPHIL COUNT 0.2 K/uL (0-0.3); HEMATOCRIT 41.2 % (38.0-50.0); IMMATURE GRANULOCYTE (%) 0.6 % (0.0-0.7); IMMATURE GRANULOCYTE COUNT 0.1 K/uL; INSTRUMENT ABS NEUTROPHIL CT 6.7 K/uL; MCH 28.6 PG (29.0-34.0); MCHC 31.1 G/DL (30.0-36.0); MEAN PLAT.VOLUME 9.5 uM^3 (9.0-12.4); MONOCYTE (%) 11.5 % (3-12); NEUTROPHIL (%) 74.2 % (45-76); NEUTROPHIL COUNT 6.7 K/uL (1.8-6.4); PLATELET COUNT 219 K/uL (156-360); RBC DIS.WIDTH-CV 19.3 % (11.8-14.6); RBC DIS.WIDTH-SD 64.5 % (39-53); RED BLOOD COUNT 4.48 M/uL (4.00-5.50); WHITE BLOOD COUNT 9.1 K/uL (4.1-10.2)
[2016-12-26 09:06] LABS: VENOUS PCO2 76 mm Hg (41-51)
[2016-12-26 09:06] LABS: PROTHROMBIN TIME 11.5 SEC (10.2-12.9)
[2016-12-26 09:07] LABS: CARBON DIOXIDE (BICARBONATE) > 40.0 MEQ/L (20-31)
[2016-12-26 09:11] LABS: CHLORIDE 83 mEq/L (99-109); SODIUM 136 mEq/L (136-147)
[2016-12-26 09:15] LABS: ANION GAP 16 MEQ/L (2-14); TOTAL BILIRUBIN 0.4 mg/dL (0.0-1.0)
[2016-12-26 09:17] LABS: ALKALINE PHOSPHATASE 66 IU/L (3-129); GFR ESTIMATE (CALCULATED) 24 mL/min/; GLUCOSE 109 mg/dL (70-99); POTASSIUM 3.9 mEq/L (3.7-5.4)
[2016-12-26 09:18] LABS: UREA NITROGEN (BUN) 90 mg/dL (9-23)
[2016-12-26 09:21] LABS: TROP-I INTERPRETATION NEGATIVE; TROPONIN-I 0.05 ng/mL (0.0-0.30)
[2016-12-26 09:59] LABS: BASE EXCESS 14.3 mEq/L (-3 to +3); BICARBONATE 42.4 mEq/L (22-26); CARBOXY HGB 5.3 % (0-5); COMMENTS - BLOOD GASES A+C+; DEVICE NC; METHEMOGLOBIN 1.3 % (0-1.5); O2 FLOW 6 L/MIN; PCO2 70 mm Hg (35-45); PO2 56 mm Hg (80-100); SITE RR; TOTAL RESP RATE 17 resp/min; pH 7.39 (7.35-7.45)
[2016-12-26 10:19] LABS: ADD MIUA? NO; BILIRUBIN NEGATIVE; BLOOD NEGATIVE; COLOR YELLOW ((YELLOW)); GLUCOSE (STRIP) NEGATIVE; KETONES NEGATIVE; LEUKOCYTES NEGATIVE; NITRITE NEGATIVE; PROTEIN (STRIP) NEGATIVE; UCUL ADDED? NO; UROBILINOGEN 0.2 MG/DL (0.2-1.0)
[2016-12-26 16:25] VITALS: BP 121/70
[2016-12-26 17:43] LABS: POINT-OF-CARE METER ID UU13113717
[2016-12-26 19:31] VITALS: BP 116/64
[2016-12-27] VITALS (7 sets, daily range): BP systolic 103–137; BP diastolic 59–77
[2016-12-27 07:01] LABS: POINT-OF-CARE METER ID UU14188625
[2016-12-27 07:17] LABS: ANION GAP 9 MEQ/L (2-14); CHLORIDE 85 MEQ/L (99-109); GFR ESTIMATE (CALCULATED) 27 mL/min/; POTASSIUM 4.4 MEQ/L (3.7-5.4); SAMPLE HEMOLYSIS CHECK 0; SAMPLE ICTERIC CHECK 0; SAMPLE LIPEMIA CHECK 0; SODIUM 133 MEQ/L (136-147); UREA NITROGEN (BUN) 83 mg/dL (9-23)
[2016-12-27 07:25] LABS: GLUCOSE 352 mg/dL (70-99)
[2016-12-27 11:11] LABS: POINT-OF-CARE METER ID UU14188625
[2016-12-28 03:28] VITALS: BP 128/78
[2016-12-28 07:05] VITALS: BP 126/65
[2016-12-28 09:13] LABS: ANION GAP 13 MEQ/L (2-14); CHLORIDE 85 MEQ/L (99-109); GFR ESTIMATE (CALCULATED) 30 mL/min/; GLUCOSE 405 mg/dL (70-99); POTASSIUM 4.5 MEQ/L (3.7-5.4); SAMPLE HEMOLYSIS CHECK 1; SAMPLE ICTERIC CHECK 0; SAMPLE LIPEMIA CHECK 0; SODIUM 135 MEQ/L (136-147); UREA NITROGEN (BUN) 81 mg/dL (9-23)
[2016-12-28 15:07] VITALS: BP 105/97
[2016-12-28 16:47] LABS: POINT-OF-CARE METER ID UU13113717
[2016-12-28 19:39] VITALS: BP 127/67
[2016-12-28 21:46] LABS: POINT-OF-CARE USER ID 603211116
[2016-12-28 23:13] LABS: POINT-OF-CARE METER ID UU14188625; POINT-OF-CARE USER ID 603211116
[2016-12-29 00:55] VITALS: BP 108/58
[2016-12-29 04:32] VITALS: BP 127/74
[2016-12-29 08:00] VITALS: BP 144/70
[2016-12-29 08:03] LABS: POINT-OF-CARE METER ID UU14188625
[2016-12-29 09:20] LABS: ANION GAP 11 MEQ/L (2-14); CHLORIDE 87 MEQ/L (99-109); GFR ESTIMATE (CALCULATED) 35 mL/min/; GLUCOSE 213 mg/dL (70-99); POTASSIUM 3.6 MEQ/L (3.7-5.4); SAMPLE HEMOLYSIS CHECK 0; SAMPLE ICTERIC CHECK 0; SAMPLE LIPEMIA CHECK 0; SODIUM 138 MEQ/L (136-147); UREA NITROGEN (BUN) 81 mg/dL (9-23)
[2016-12-29] MEDS ORDERED: NOVOLOG PE100 UNITS/ SC ×2 (09:48→13:24)
[2016-12-29] MEDS ORDERED: PREDNISONE10 MG PO ×2 (09:52→13:25)
[2016-12-29] MEDS ORDERED: VIBRAMYCIN100 MG PO (09:52)
[2016-12-29 11:32] LABS: POINT-OF-CARE METER ID UU14188625
[2016-12-29 11:43] VITALS: BP 135/71
[2016-12-30 11:24] LABS: POINT-OF-CARE METER ID UU14188625
[2016-12-30 11:24] LABS: POINT-OF-CARE METER ID UU13113717
[2016-12-30 11:24] LABS: POINT-OF-CARE METER ID UU14188625
[2016-12-30 11:55] LABS: POINT-OF-CARE METER ID UU14188625
[2016-12-30 11:55] LABS: POINT-OF-CARE METER ID UU14188625
[2016-12-30 11:57] LABS: POINT-OF-CARE METER ID UU14188625
[2016-12-30 11:57] LABS: POINT-OF-CARE METER ID UU14188625
[2016-12-30 12:17] LABS: POINT-OF-CARE METER ID UU13113717
== END 2016-12-29 14:09 | disposition home or self-care (01) | DRG 189 ==
LOC: EME 08:20 → 5SOUTH 13:23 → EDOF 13:23 → ENRESERV 13:27 → 5SOUTH 15:15
PROVIDERS: Internal Medicine; Nurse Practitioner Adult Health; Physician Assistant
DX: J96.21 Acute and chronic respiratory failure with hypoxia (principal); J96.22 Acute and chronic respiratory failure with hypercapnia; J44.1 Chronic obstructive pulmonary disease with (acute) exacerbation; J44.0 Chronic obstructive pulmonary disease with (acute) lower respiratory infection; J20.9 Acute bronchitis, unspecified; I13.0 Hypertensive heart and chronic kidney disease with heart failure and stage 1 through stage 4 chronic kidney disease, or unspecified chronic kidney disease; N18.4 Chronic kidney disease, stage 4 (severe); E11.22 Type 2 diabetes mellitus with diabetic chronic kidney disease; I50.32 Chronic diastolic (congestive) heart failure; E87.1 Hypo-osmolality and hyponatremia; Z91.19 Patient's noncompliance with other medical treatment and regimen; Z99.81 Dependence on supplemental oxygen; I27.29 Other secondary pulmonary hypertension; I27.81 Cor pulmonale (chronic); I35.0 Nonrheumatic aortic (valve) stenosis; I48.91 Unspecified atrial fibrillation; I48.92 Unspecified atrial flutter; I70.201 Unspecified atherosclerosis of native arteries of extremities, right leg; G47.33 Obstructive sleep apnea (adult) (pediatric); E11.21 Type 2 diabetes mellitus with diabetic nephropathy; E11.319 Type 2 diabetes mellitus with unspecified diabetic retinopathy without macular edema; E11.40 Type 2 diabetes mellitus with diabetic neuropathy, unspecified; E11.51 Type 2 diabetes mellitus with diabetic peripheral angiopathy without gangrene; I25.10 Atherosclerotic heart disease of native coronary artery without angina pectoris; E66.01 Morbid (severe) obesity due to excess calories; E78.5 Hyperlipidemia, unspecified; F17.210 Nicotine dependence, cigarettes, uncomplicated; K21.9 Gastro-esophageal reflux disease without esophagitis; D64.9 Anemia, unspecified; M19.90 Unspecified osteoarthritis, unspecified site; Z79.4 Long term (current) use of insulin; Z95.5 Presence of coronary angioplasty implant and graft; Z79.82 Long term (current) use of aspirin; Z82.49 Family history of ischemic heart disease and other diseases of the circulatory system; Z83.3 Family history of diabetes mellitus
CPT/HCPCS: 36415; 36600; 71010; 71020; 80048; 80053; 80069; 81003; 82803; 82948; 83605; 83880; 84484; 84550; 85025; 85610; 87040; 87070; 87077; 87186; 87205; 87801; 93005; 93925; 93971; 94640; 94640 76; 94644; 94799; 99202; 99281; 99285; J0696; J1644; J1815; J1940; J2920; J2930; J7030; J7040; J7050; J7120; J7512

== ENCOUNTER 2017-02-01 15:40 | Inpatient (IN) | payer OTHER ==
[~2017-02-01] VITALS: Ht 182.9 cm; Wt 106.4 kg
[~2017-02-01 15:40] MED LIST changes: +VIBRAMYCIN100 MG PO
[2017-02-01 17:12] LABS: HEMATOCRIT 37.5 % (38.0-50.0); MCH 29.8 PG (29.0-34.0); MCHC 31.2 G/DL (30.0-36.0); MCV 95.4 FL (86-99); MEAN PLAT.VOLUME 8.7 uM^3 (9.0-12.4); PLATELET COUNT 335 K/uL (156-360); RBC DIS.WIDTH-CV 18.7 % (11.8-14.6); RBC DIS.WIDTH-SD 65.6 % (39-53); RED BLOOD COUNT 3.93 M/uL (4.00-5.50); WHITE BLOOD COUNT 8.9 K/uL (4.1-10.2)
[2017-02-01 17:24] LABS: CHLORIDE 93 mEq/L (99-109); POTASSIUM 3.9 mEq/L (3.7-5.4); SODIUM 139 mEq/L (136-147)
[2017-02-01 17:27] LABS: GLUCOSE 182 mg/dL (70-99)
[2017-02-01 17:28] LABS: ANION GAP 12 MEQ/L (2-14)
[2017-02-01 17:29] LABS: TOTAL BILIRUBIN 0.3 mg/dL (0.0-1.0)
[2017-02-01 17:30] LABS: ALKALINE PHOSPHATASE 77 IU/L (3-129); GFR ESTIMATE (CALCULATED) 25 mL/min/
[2017-02-01 17:31] LABS: UREA NITROGEN (BUN) 85 mg/dL (9-23)
[2017-02-01] MEDS ORDERED: CEPHALEXIN500 MG PO (20:01)
[2017-02-01] MEDS ORDERED: CARVEDILOL3.125 MG PO (20:02)
[2017-02-01] MEDS ORDERED: METOLAZONE5 MG PO (20:03)
[2017-02-01] MEDS ORDERED: LORAZEPAM0.5 MG PO (20:16)
[2017-02-01 21:46] LABS: BASE EXCESS 13.6 mEq/L (-3 to +3); BICARBONATE 41.6 mEq/L (22-26); COMMENTS - BLOOD GASES A+C+; METHEMOGLOBIN 0.8 % (0-1.5); PCO2 72 mm Hg (35-45); PO2 65 mm Hg (80-100); SITE RR; pH 7.37 (7.35-7.45)
[2017-02-01 21:47] LABS: DEVICE NCH; O2 FLOW 8 L/MIN; TOTAL RESP RATE 24 resp/min
[2017-02-01 21:53] LABS: ADD MIUA? NO; BILIRUBIN NEGATIVE; BLOOD NEGATIVE; COLOR YELLOW ((YELLOW)); GLUCOSE (STRIP) NEGATIVE; KETONES NEGATIVE; LEUKOCYTES NEGATIVE; NITRITE NEGATIVE; PROTEIN (STRIP) 30; SPECIFIC GRAVITY 1.011 (1.000-1.030); UCUL ADDED? NO; UROBILINOGEN 0.2 MG/DL (0.2-1.0)
[2017-02-01 23:00] VITALS: BP 132/78
[2017-02-01 23:20] LABS: POINT-OF-CARE METER ID UU13113781
[2017-02-02] VITALS (7 sets, daily range): BP systolic 114–136; BP diastolic 54–81
[2017-02-02 05:47] LABS: HEMATOCRIT 36.5 % (38.0-50.0); MCH 28.8 PG (29.0-34.0); MCHC 30.1 G/DL (30.0-36.0); MCV 95.5 FL (86-99); MEAN PLAT.VOLUME 9.1 uM^3 (9.0-12.4); PLATELET COUNT 324 K/uL (156-360); RBC DIS.WIDTH-CV 18.5 % (11.8-14.6); RBC DIS.WIDTH-SD 63.9 % (39-53); RED BLOOD COUNT 3.82 M/uL (4.00-5.50); WHITE BLOOD COUNT 7.2 K/uL (4.1-10.2)
[2017-02-02 06:21] LABS: ANION GAP 7 MEQ/L (2-14); CHLORIDE 94 MEQ/L (99-109); GFR ESTIMATE (CALCULATED) 24 mL/min/; GLUCOSE 220 mg/dL (70-99); SAMPLE HEMOLYSIS CHECK 0; SAMPLE ICTERIC CHECK 0; SAMPLE LIPEMIA CHECK 0; SODIUM 139 MEQ/L (136-147); UREA NITROGEN (BUN) 82 mg/dL (9-23)
[2017-02-02 06:25] LABS: POTASSIUM 4.8 MEQ/L (3.7-5.4)
[2017-02-02 07:39] LABS: POINT-OF-CARE METER ID UU13113781; POINT-OF-CARE USER ID NUTSLF44
[2017-02-02 11:10] LABS: TROP-I INTERPRETATION NEGATIVE; TROPONIN-I 0.05 ng/mL (0.0-0.30)
[2017-02-02 16:31] LABS: TROP-I INTERPRETATION NEGATIVE; TROPONIN-I 0.04 ng/mL (0.0-0.30)
[2017-02-02 21:27] LABS: POINT-OF-CARE METER ID UU13113698
[2017-02-03] VITALS (7 sets, daily range): BP systolic 114–171; BP diastolic 63–82
[2017-02-03 05:22] LABS: EOSINOPHIL (%) 0 % (0-5); HEMATOCRIT 34.5 % (38.0-50.0); IMMATURE GRANULOCYTE (%) 0.8 % (0.0-0.7); IMMATURE GRANULOCYTE COUNT 0.1 K/uL; INSTRUMENT ABS NEUTROPHIL CT 7.1 K/uL; LYMPHOCYTE COUNT 0.4 K/uL (1.0-2.8); MCH 29.3 PG (29.0-34.0); MCHC 30.7 G/DL (30.0-36.0); MCV 95.3 FL (86-99); MEAN PLAT.VOLUME 9.2 uM^3 (9.0-12.4); MONOCYTE (%) 4.4 % (3-12); MONOCYTE COUNT 0.4 K/uL (0-0.8); NEUTROPHIL (%) 89.8 % (45-76); NEUTROPHIL COUNT 7.1 K/uL (1.8-6.4); PLATELET COUNT 319 K/uL (156-360); RBC DIS.WIDTH-CV 17.9 % (11.8-14.6); RED BLOOD COUNT 3.62 M/uL (4.00-5.50); WHITE BLOOD COUNT 7.9 K/uL (4.1-10.2)
[2017-02-03 06:21] LABS: ALKALINE PHOSPHATASE 56 IU/L (3-129); ANION GAP 8 MEQ/L (2-14); CHLORIDE 92 MEQ/L (99-109); GFR ESTIMATE (CALCULATED) 26 mL/min/; POTASSIUM 3.9 MEQ/L (3.7-5.4); SAMPLE HEMOLYSIS CHECK 0; SAMPLE ICTERIC CHECK 0; SAMPLE LIPEMIA CHECK 0; SODIUM 135 MEQ/L (136-147); TOTAL BILIRUBIN 0.4 MG/DL (0.0-1.0); UREA NITROGEN (BUN) 86 mg/dL (9-23)
[2017-02-03 06:25] LABS: GLUCOSE 400 mg/dL (70-99)
[2017-02-03 07:50] LABS: POINT-OF-CARE METER ID UU13113698; POINT-OF-CARE USER ID ENVKC36
[2017-02-03 09:05] LABS: POINT-OF-CARE METER ID UU13113781; POINT-OF-CARE USER ID NUTSLF44
[2017-02-03 09:05] LABS: POINT-OF-CARE METER ID UU13113781
[2017-02-03 17:54] LABS: POINT-OF-CARE METER ID UU13113698; POINT-OF-CARE USER ID ENVKC36
[2017-02-03 17:54] LABS: POINT-OF-CARE METER ID UU13113698
[2017-02-03 17:54] LABS: POINT-OF-CARE METER ID UU14174216; POINT-OF-CARE USER ID ENVKC36
[2017-02-04 04:49] VITALS: BP 126/68
[2017-02-04 05:38] LABS: EOSINOPHIL (%) 0 % (0-5); HEMATOCRIT 36.5 % (38.0-50.0); IMMATURE GRANULOCYTE (%) 0.7 % (0.0-0.7); IMMATURE GRANULOCYTE COUNT 0.1 K/uL; INSTRUMENT ABS NEUTROPHIL CT 12.3 K/uL; LYMPHOCYTE COUNT 0.4 K/uL (1.0-2.8); MCH 29.2 PG (29.0-34.0); MCHC 31.2 G/DL (30.0-36.0); MCV 93.6 FL (86-99); MONOCYTE (%) 4.9 % (3-12); MONOCYTE COUNT 0.7 K/uL (0-0.8); NEUTROPHIL COUNT 12.3 K/uL (1.8-6.4); PLATELET COUNT 320 K/uL (156-360); RBC DIS.WIDTH-SD 61.6 % (39-53); WHITE BLOOD COUNT 13.5 K/uL (4.1-10.2)
[2017-02-04 06:02] LABS: ANION GAP 9 MEQ/L (2-14); CHLORIDE 92 MEQ/L (99-109); GFR ESTIMATE (CALCULATED) 30 mL/min/; GLUCOSE 306 mg/dL (70-99); SAMPLE HEMOLYSIS CHECK 0; SAMPLE ICTERIC CHECK 0; SAMPLE LIPEMIA CHECK 0; SODIUM 138 MEQ/L (136-147); UREA NITROGEN (BUN) 91 mg/dL (9-23)
[2017-02-04 09:16] VITALS: BP 138/75
[2017-02-04 11:26] VITALS: BP 130/77
[2017-02-04 17:04] VITALS: BP 131/80
[2017-02-04 19:35] VITALS: BP 147/82
[2017-02-05 00:55] VITALS: BP 158/70
[2017-02-05 05:04] LABS: CHLORIDE 93 mEq/L (99-109); POTASSIUM 3.9 mEq/L (3.7-5.4); SODIUM 141 mEq/L (136-147)
[2017-02-05 05:24] LABS: GFR ESTIMATE (CALCULATED) 27 mL/min/; UREA NITROGEN (BUN) 88 mg/dL (9-23)
[2017-02-05 05:26] LABS: GLUCOSE 275 mg/dL (70-99)
[2017-02-05 07:47] LABS: POINT-OF-CARE METER ID UU13113698
[2017-02-05 08:23] VITALS: BP 163/94
[2017-02-05 11:34] LABS: POINT-OF-CARE METER ID UU14314088
[2017-02-05] MEDS ORDERED: LEVOFLOXACIN750 MG PO (11:37)
[2017-02-05] MEDS ORDERED: PREDNISONE10 MG PO (11:39)
[2017-02-05 12:48] VITALS: BP 135/79
[2017-02-05 14:30] LABS: POINT-OF-CARE METER ID UU14314088
[2017-02-05 14:30] LABS: POINT-OF-CARE METER ID UU13113698
[2017-02-05 14:30] LABS: POINT-OF-CARE METER ID UU13113698; POINT-OF-CARE USER ID ENVKC36
[2017-02-05 14:30] LABS: POINT-OF-CARE METER ID UU13113698; POINT-OF-CARE USER ID ENVKC36
[2017-02-05 14:33] LABS: POINT-OF-CARE METER ID UU13113698
[2017-02-05 14:33] LABS: POINT-OF-CARE METER ID UU14174216
== END 2017-02-05 12:47 | disposition home or self-care (01) | DRG 190 ==
LOC: EME 15:40 → EDOF 20:16 → CANRESERV 20:16 → 4EAST 20:16 → ENRESERV 20:16 → EDOF 21:02 → ENRESERV 21:10 → 4EAST 21:56
PROVIDERS: Hospitalist; Internal Medicine; Internal Medicine Nephrology; Nurse Practitioner Family
PROC: 5A09357 Assistance with Respiratory Ventilation, Less than 24 Consecutive Hours, Continuous Positive Airway Pressure (ICD-10-PCS; principal; 2017-02-04)
DX: J44.1 Chronic obstructive pulmonary disease with (acute) exacerbation (principal); J44.0 Chronic obstructive pulmonary disease with (acute) lower respiratory infection; J20.9 Acute bronchitis, unspecified; J96.21 Acute and chronic respiratory failure with hypoxia; I27.29 Other secondary pulmonary hypertension; I13.0 Hypertensive heart and chronic kidney disease with heart failure and stage 1 through stage 4 chronic kidney disease, or unspecified chronic kidney disease; I50.33 Acute on chronic diastolic (congestive) heart failure; E11.22 Type 2 diabetes mellitus with diabetic chronic kidney disease; N18.4 Chronic kidney disease, stage 4 (severe); I48.0 Paroxysmal atrial fibrillation; R39.2 Extrarenal uremia; T50.2X5A Adverse effect of carbonic-anhydrase inhibitors, benzothiadiazides and other diuretics, initial encounter; E11.65 Type 2 diabetes mellitus with hyperglycemia; T38.0X5A Adverse effect of glucocorticoids and synthetic analogues, initial encounter; E86.9 Volume depletion, unspecified; E87.3 Alkalosis; I27.81 Cor pulmonale (chronic); N25.81 Secondary hyperparathyroidism of renal origin; D63.1 Anemia in chronic kidney disease; D50.9 Iron deficiency anemia, unspecified; I95.9 Hypotension, unspecified; R00.0 Tachycardia, unspecified; Z99.81 Dependence on supplemental oxygen; Z91.11 Patient's noncompliance with dietary regimen; E11.319 Type 2 diabetes mellitus with unspecified diabetic retinopathy without macular edema; E11.42 Type 2 diabetes mellitus with diabetic polyneuropathy; E11.51 Type 2 diabetes mellitus with diabetic peripheral angiopathy without gangrene; I25.10 Atherosclerotic heart disease of native coronary artery without angina pectoris; I25.2 Old myocardial infarction; I87.8 Other specified disorders of veins; I87.2 Venous insufficiency (chronic) (peripheral); I89.0 Lymphedema, not elsewhere classified; K21.9 Gastro-esophageal reflux disease without esophagitis; D64.9 Anemia, unspecified; E78.5 Hyperlipidemia, unspecified; M79.89 Other specified soft tissue disorders; M19.90 Unspecified osteoarthritis, unspecified site; E66.9 Obesity, unspecified; Z68.31 Body mass index [BMI] 31.0-31.9, adult; G47.33 Obstructive sleep apnea (adult) (pediatric); F39 Unspecified mood [affective] disorder; F41.9 Anxiety disorder, unspecified; F17.210 Nicotine dependence, cigarettes, uncomplicated; Z95.5 Presence of coronary angioplasty implant and graft; Z79.4 Long term (current) use of insulin; Z87.442 Personal history of urinary calculi
CPT/HCPCS: 36600; 71020; 78582; 80048; 80048 91; 80053; 80069; 81003; 82803; 82948; 83605; 84484; 84550; 85025; 85027; 87040; 87070; 87205; 93005; 94640; 94640 76; 94799; 99202; 99281; 99284; A9540; A9567; J0692; J1650; J1815; J1940; J2920; J2930; J7050; J7512

== ENCOUNTER 2017-05-05 03:12 | Emergency (ER) | payer OTHER ==
[~2017-05-05] VITALS: Ht 182.9 cm; Wt 98.1 kg
[~2017-05-05 03:12] MED LIST changes: +LEVOFLOXACIN750 MG PO
[2017-05-05 03:40] LABS: HEMATOCRIT 42.2 % (38.0-50.0); HEMOGLOBIN 13.7 G/DL (12.5-16.6); MCH 29.1 PG (29.0-34.0); MCHC 32.5 G/DL (30.0-36.0); MCV 89.8 FL (86-99); PLATELET COUNT 307 K/uL (156-360); RBC DIS.WIDTH-CV 15.6 % (11.8-14.6); RBC DIS.WIDTH-SD 51.3 % (39-53); WHITE BLOOD COUNT 13.2 K/uL (4.1-10.2)
[2017-05-05 03:54] LABS: ALBUMIN 4.4 g/dL (3.2-4.8); CHLORIDE 92 mEq/L (99-109); POTASSIUM 4.4 mEq/L (3.7-5.4); SODIUM 136 mEq/L (136-147)
[2017-05-05 03:56] LABS: GLUCOSE 220 mg/dL (70-99); TOTAL PROTEIN 7.6 g/dL (6.4-8.3)
[2017-05-05 03:58] LABS: TOTAL BILIRUBIN 0.4 mg/dL (0.0-1.0)
[2017-05-05 04:00] LABS: ALKALINE PHOSPHATASE 93 IU/L (3-129); CREATININE 2.4 mg/dL (0.6-1.3); GFR ESTIMATE (CALCULATED) 28 mL/min/ (58.99-99999)
[2017-05-05 04:01] LABS: UREA NITROGEN (BUN) 68 mg/dL (9-23)
[2017-05-05 04:02] LABS: AST (GOT) 18 IU/L (2-34)
[2017-05-05 04:03] LABS: ALT (GPT) 13 IU/L (3-49); LIPASE 25 U/L (1.0-51.0)
[2017-05-05 08:36] LABS: APPEARANCE CLEAR ((CLEAR)); BILIRUBIN NEGATIVE; BLOOD MODERATE; COLOR YELLOW ((YELLOW)); GLUCOSE (STRIP) 50; KETONES NEGATIVE; LEUKOCYTES NEGATIVE; NITRITE NEGATIVE; PROTEIN (STRIP) 100; UROBILINOGEN 0.2 MG/DL (0.2-1.0)
[2017-05-05 08:43] LABS: BACTERIA RARE /HPF; EPITHELIAL CELLS NONE SEEN /HPF; MUCUS NONE SEEN /LPF; RED BLOOD CELLS TNTC /HPF (0-5); UCUL ADDED? YES; WHITE BLOOD CELLS 0-5 /HPF (0-5)
[2017-05-05] MEDS ORDERED: FLOMAX0.4 MG PO (12:48)
[2017-05-05] MEDS ORDERED: COLACE100 MG PO (12:48)
[2017-05-05] MEDS ORDERED: BENTYL20 MG PO (12:48)
[2017-05-05] MEDS ORDERED: MIRALAX17 GM PO (12:48)
[2017-05-05 13:16] VITALS: BP 105/74
== END 2017-05-05 13:17 | disposition home or self-care (01) ==
LOC: EME 03:12
PROC: 0T9B70Z Drainage of Bladder with Drainage Device, Via Natural or Artificial Opening (ICD-10-PCS; principal; 2017-05-05)
DX: K59.00 Constipation, unspecified (principal); R33.9 Retention of urine, unspecified; R10.84 Generalized abdominal pain; N28.9 Disorder of kidney and ureter, unspecified; E11.9 Type 2 diabetes mellitus without complications; Z79.4 Long term (current) use of insulin; Z87.442 Personal history of urinary calculi; Z99.81 Dependence on supplemental oxygen; F17.200 Nicotine dependence, unspecified, uncomplicated; I25.10 Atherosclerotic heart disease of native coronary artery without angina pectoris; I25.2 Old myocardial infarction; K21.9 Gastro-esophageal reflux disease without esophagitis; Z88.5 Allergy status to narcotic agent
CPT/HCPCS: 74176; 80053; 81003; 83690; 85027; 87086; 99281; 99285; J2405; J3010; J7040